=== PATIENT | female | born 1985 | race Caucasian/White ===

== ENCOUNTER 2017-03-27 09:49 | Emergency (ER) | payer MEDICAID ==
[2017-03-27 09:54] VITALS: O2SAT 97
--- NOTE | 2017-03-27 09:54 | C.PDOC ---
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 Patient states to have accidentally stepped on glass without shoes. Patient is s/p D&C 2 weeks ago in the ED. Denies any other associated injury of symptoms at this time. 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 ACCID STEPPED ON GLASS, NO SHOES. CO LACERATION, PAIN, BLEEDING. S/P D&C 2 WKS AGO. NO OTHER ASSOC INJURY OR SX EXAM MOD DIST EXT NO DEFORM SKIN +6 CM LINEAR LAC OVER BALL R FOOT W ACTIVE BLEEDING. 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) Current Symptoms Are (Timing): Still Present Recent travel outside of the [place]: No - Ankle/Foot Description Of Injury: Laceration (laceration to right foot via stepping on glass without shoes; active bleeding) Past Medical History Reviewed: Historical Data, Nursing Documentation, Vital Signs Vital Signs: Last Vital Signs Temp 98.9 F 03/27/17 09:53 Pulse 108 H 03/27/17 09:53 Resp 21 03/27/17 09:53 BP 150/107 H 03/27/17 09:53 Pulse Ox 97 03/27/17 12:23 - Medical History PMH: No Chronic Diseases Surgical History: No Surg Hx Family History: States: No Known Family Hx - Social History Hx Alcohol Use: No Hx Substance Use: No - Immunization History Hx Tetanus Toxoid Vaccination: No Hx Influenza Vaccination: No Hx Pneumococcal Vaccination: No Review Of Systems Constitutional: Negative for: Fever, Chills Cardiovascular: Negative for: Chest Pain Respiratory: Negative for: Shortness of Breath Gastrointestinal: Negative for: Nausea, Vomiting Skin: Positive for: Other (laceration to right foot) Physical Exam - Physical Exam Appears: In Acute Distress (moderate) Skin: Normal Color, Other (6cm linear laceration over ball of right foot with active bleeding; retained FB) Head: Atraumatic, Normacephalic Oral Mucosa: Moist Chest: Symmetrical Cardiovascular: Rhythm Regular, No Murmur Respiratory: Normal Breath Sounds, No Rales, No Rhonchi, No Wheezing Gastrointestinal/Abdominal: Soft, No Tenderness Extremity: No Deformity Neurological/Psych: Oriented x3, Normal Speech, Normal Cognition, Other (no focal deficits) ED Course And Treatment O2 Sat by Pulse Oximetry: 97 (room air) Pulse Ox Interpretation: Normal - Other Rad R FOOT X-Ray: Interpreted by Me (NO FB FX) Interpretation: Impression: Overlying bandange and or cast obscured fine osseous and soft tissue detail. Lucency through the 5th middle phalanx, nonspecific. Clinical correlation to site pain to exclude osseous injury at this level. No evidence of discrete radiopaque foreign body identified. Side plate with screw fixation of a chronic distal fibular fracture. Narrowing of the tibiotalar joint space. Productive change at the dorsal aspect of the midfoot. Moderate hallux valgus deformity. Productive change noted at the syndesmosis of the distal tibia and fibula. Progress Note: Avelox, Tenivac, Dilaudid, and Zofran administered. Podiatry called for further evaluation. Progress - Re-Evaluation Re-evaluation Note: 03/27/17 09:54 d/w PODIATRY RESIDENT WILL EVAL IN ER 03/27/17 12:31 s/p REPAIR BY PODIATRY RESIDENT. CLEARED FOR DC, CLINIC 03/28 - Data Reviewed Data Reviewed: Diagnostic imaging Disposition Counseled Patient/Family Regarding: Studies Performed, Diagnosis, Need For Followup, Rx Given - Disposition Referrals: Saige Moore DPM [Staff Provider] - Disposition: HOME/ ROUTINE Disposition Time: 12:32 Condition: IMPROVED Additional Instructions: SEGUIMIENTO EN LA CLNICA DE PODIATRA 03/28/17 SEGN LO AVISADO. Prescriptions: Acetaminophen [Tylenol Extra Strength] 2 tab PO Q6 #30 tablet Ibuprofen [Motrin] 600 mg PO Q6 #30 tab Moxifloxacin [Avelox] 400 mg PO DAILY #6 tab Instructions: Care For Your Stitches (ED), Laceration (ED) Forms: [employer] ([place]an), Work Excuse Print Language: ICELANDIC - Clinical Impression Clinical Impression: Foot laceration - Scribe Statement The provider has reviewed the documentation as recorded by the Scribe Sole Pizarro All medical record entries made by the Scribe were at my direction and personally dictated by me. I have reviewed the chart and agree that the record accurately reflects my personal performance of the history, physical exam, medical decision making, and the department course for this patient. I have also personally directed, reviewed, and agree with the discharge instructions and disposition.
[2017-03-27] MEDS ORDERED: Tetanus/Diphtheria Toxoids 0.5 ml Syringe IM ONE ×2 (09:55→10:07)
[2017-03-27] MEDS ORDERED: HYDROmorphone 0.5 mg/0.5 ml ISec IM STA (09:55)
[2017-03-27] MEDS ORDERED: Moxifloxacin IV 400mg/250ml NS 250 ML IV ONE (09:57)
--- NOTE | 2017-03-27 10:50 | RAD ---
Right foot three views History: Trauma. Evaluate for retained foreign body. Comparison: None available. Findings: Overlying bandage and or cast obscures fine osseous and soft tissue detail. Lucency through the 5th middle phalanx, nonspecific. Clinical correlation to site pain to exclude osseous injury at this level. No evidence of discrete radiopaque foreign body identified. Side plate with screw fixation of a chronic distal fibular fracture. Narrowing of the tibiotalar joint space. Productive change at the dorsal aspect of the midfoot. Moderate hallux valgus deformity. Productive change noted at the syndesmosis of the distal tibia and fibula. Impression: Overlying bandage and or cast obscures fine osseous and soft tissue detail. Lucency through the 5th middle phalanx, nonspecific. Clinical correlation to site pain to exclude osseous injury at this level. No evidence of discrete radiopaque foreign body identified. Side plate with screw fixation of a chronic distal fibular fracture. Narrowing of the tibiotalar joint space. Productive change at the dorsal aspect of the midfoot. Moderate hallux valgus deformity. Productive change noted at the syndesmosis of the distal tibia and fibula.
[2017-03-27] MEDS ORDERED: Lidocaine 2% Inj (20ml) ONE (11:13)
--- NOTE | 2017-03-27 12:04 | CP.PCM.CON ---
History of Present Illness - History of Present Illness History of Present Illness: Podiatry Consult Note- Dr. Moore This is a 31 yo female patient who presents to ED today with laceration of right foot. Pt says that she stepped on glass at home earlier this morning. Says she is unsure exactly what she stepped on, says she was barefoot and noticed a great deal of pain and some bleeding from the foot. Seen resting in the bed at time of visit moaning, says the foot hurts even after receiving medication for pain earlier. Denies any other injuries, denies numbness or tingling to the foot. Review of Systems - Review of Systems Review of Systems: All systems reviewed and negative except HPI above Past Patient History - Past Social History Smoking Status: Never Smoked - PSYCHIATRIC Hx Substance Use: No - SURGICAL HISTORY Hx Surgeries: Yes Hx Abdominal Aortic Aneurysm Repair: No Hx Dilation and Curettage: Yes Hx Orthopedic Surgery: Yes (rt. ankle) Other/Comment: tummy tack ; liposuction on the back - ANESTHESIA Hx Anesthesia: Yes Hx Anesthesia Reactions: No Hx Malignant Hyperthermia: No Meds Allergies/Adverse Reactions: Allergies Allergy/AdvReac Type Severity Reaction Status Date / Time No Known Allergies Allergy Verified 03/27/17 09:50 Physical Exam - Constitutional Appears: Non-toxic, No Acute Distress - Extremities Exam Additional comments: Right foot focused: Compressive dressing appears c/d/i Upon removal of dressing no active bleeding noted, there is an approximately 6 cm linear incision which begins sub-met 1 and extends proximally in to arch Wound probes deep to subcutaneous tissue, negative probe to bone, neurovascular intact, mild sanguinous drainage noted - Neurological Exam Neurological exam: Alert, CN II-XII Intact, Oriented x3 - Psychiatric Exam Psychiatric exam: Normal Affect, Normal Mood Results - Vital Signs Recent Vital Signs: Last Vital Signs Temp 98.9 F 03/27/17 09:53 Pulse 108 H 03/27/17 09:53 Resp 21 03/27/17 09:53 BP 150/107 H 03/27/17 09:53 Pulse Ox 97 03/27/17 11:59 Assessment & Plan - Assessment and Plan (Free Text) Assessment: 31 yo female with deep laceration right plantar foot Plan: Pt S&E at bedside in ED Plan discussed with ED attending (Dr. Elizabeth)and attending Dr. Moore Chart, vitals reviewed Right foot x-ray reviewed: negative for any foreign bodies foot cleansed with alcohol prep pad and injected with 15cc 2% lidocaine plain Once local anesthetic effect achieved, foot prepped with betadine and flushed copiously with sterile normal saline Sterile hemostat used to probe laceration (no evidence of glass or other foreign bodies) Used sterile lac tray, deep subcut tissue reapproximated with #3-0 vicryl (x3); skin edges reapproximated with #4-0 nylon (x13) Incision site cleansed with saline again, dressed with xeroform, DSD,kerlix and JULIUS Pt advised to keep dressing c/d/i To wear surgical shoe for ambulation (WBAT) Tetanus, abx, pain meds as per ED Stable per podiatry F/u tomorrow (Wednesday 03/28 in AM) at [facility] w/ Dr. Moore
[2017-03-27 12:58] VITALS: BP 147/89; PULSE 89; RESP 15; TEMP 98.2
== END 2017-03-27 12:58 | disposition home or self-care (01) ==
LOC: C.ER 09:49
DX: S91.311A Laceration without foreign body, right foot, initial encounter (principal); W22.8XXA Striking against or struck by other objects, initial encounter; Z23 Encounter for immunization
CPT/HCPCS: 12002; 73630; 90471; 90714; 96372; 96374; 99285; J1170; J2405